=== PATIENT | female | born 1970 | race African-American/Black ===

== ENCOUNTER 2019-06-26 10:37 | Emergency (ER) | payer OTHER ==
[~2019-06-26] VITALS: Ht 170.2 cm; Wt 98.4 kg
[~2019-06-26 10:37] MED LIST: BACTRIM DS TAB1 EACH PO; BENADRYL25 MG PO; CALAN; CARVEDILOL12.5 MG PO; COLACE100 MG PO; ERYTHROMYCIN E3.5 G3 OPHTHALMIC; FARXIGA5 MG; GLUCOPHAGE500 MG; IBUPROFEN 800800 MG PO; JANUVIA100 MG PO; LIPITOR10 MG PO; LISINOPRIL20 MG PO; MEDROLDOSEPACK PO; NOHOMEMEDICATIONS; NORCO 5-325 TA1 EACH PO; OMEGA-31000 M1; PEPCID20 MG PO; PHENTERMINE H37.5 MG; PHENTERMINE HCL15 MG; ROBAXIN 750 MG750 M1 PO; TAMIFLU45 MG PO; TOPAMAX50 MG; TUSSIONEX PENN473 ML PO; ULTRAM 50MG TAB50 MG PO; VENTOLIN HFA 1818 GM INH; ZPAK PO
[2019-06-26] MEDS ORDERED: PHENTERMINE H37.5 MG PO (11:04)
[2019-06-26 11:59] LABS: ABSOLUTE NEUTROPHILS 5.5 thou/uL (1.4-8.2); EOSINOPHILS 1.5 % (0.0-3.0); HEMATOCRIT 38.4 % (37.0-47.0); HEMOGLOBIN 12.3 gm/dL (12.0-15.0); LYMPHOCYTES 24.4 % (24.0-44.0); MCH 27.4 pg (26.0-34.0); MCHC 32.1 g/dL (28.0-37.0); MCV 85.3 fL (80.0-100.0); MONOCYTES 10.6 % (1.0-8.0); PLATELET COUNT 244 thou/uL (150-400); POLYS 62.5 % (36.0-66.0); RBC 4.51 mil/uL (4.20-5.00); RDW 15.7 % (10.5-14.5); WBC 8.8 thou/uL (4.0-11.0)
[2019-06-26 12:05] LABS: ANION GAP 8 mmol/L (7-16); BUN 10 mg/dL (7-18); CALCIUM 9.5 mg/dL (8.5-10.1); CHLORIDE 101 mmol/L (98-107); CO2 27 mmol/L (21-32); CREATININE 0.9 mg/dL (0.6-1.0); GLUCOSE 100 mg/dL (74-106); POTASSIUM 3.9 mmol/L (3.5-5.1); SODIUM 136 mmol/L (136-145)
[2019-06-26 12:16] LABS: ALBUMIN 3.5 g/dL (3.4-5.0); SGOT 17 U/L (15-37); SGPT 18 U/L (30-65); TOTAL BILIRUBIN 0.4 mg/dL (<0.1-1.0); TOTAL PROTEIN 8.6 g/dL (6.4-8.2); TROPONIN-I <0.06 ng/mL (<0.06)
[2019-06-26] MEDS ORDERED: MOBIC15 MG PO (13:26)
[2019-06-26] MEDS ORDERED: MEDROLDOSEPACK PO (13:26)
[2019-06-26 14:02] VITALS: BP 161/98
--- NOTE | 2019-06-26 17:20 | EKG ---
[facility] [place] [address] ELECTROCARDIOGRAM REPORT Name: OMARI BECERRA [facility]US[facility] [id number] Admission: 06/26/19 Attend Phys: Discharge: 06/26/19 Date of : 68 Report #: [id number] THIS REPORT FOR: //name// [facility] ED Test Date: 2019-06-26 Test Time: 10:51:05 Pat Name: OMARI BECERRA Department: Room: Gender: F [employer]: REAL : 1970 Requested By: Antonia Gómez Order Number: [id number] MD: Miah Su Measurements Intervals [place] Rate: 83 P: 16 MI: 123 QRS: -33 QRSD: 107 T: -30 QT: 372 QTc: 437 Interpretive Statements Sinus rhythm Left ventricular hypertrophy Anterior Q waves, possibly due to LVH Abnormal T, consider ischemia, inferior leads Baseline wander in lead(s) II,III,aVF Compared to ECG 07/01/2015 10:19:43 No significant change was found Electronically Signed On 06-26-2019 17:20:19 BILINGUAL RESEARCH INTERVIEWER by Miah Su [email or web address] <ELECTRONICALLY SIGNED> By: Miah Su MD, [facility] 06/26/19 1720 1051 1051 Miah Su MD, [facility] /EPI
== END 2019-06-26 14:02 | disposition home or self-care (01) ==
LOC: ER 10:37
PROVIDERS: Physician Assistant
DX: R07.89 Other chest pain (principal); R05 Cough; I10 Essential (primary) hypertension; Z90.89 Acquired absence of other organs; Z90.49 Acquired absence of other specified parts of digestive tract; Z88.8 Allergy status to other drugs, medicaments and biological substances

== ENCOUNTER 2019-07-05 16:01 | Emergency (ER) | payer OTHER ==
[~2019-07-05] VITALS: Ht 170.2 cm; Wt 99.8 kg
[~2019-07-05 16:01] MED LIST changes: +MOBIC15 MG PO; +PHENTERMINE H37.5 MG PO
[2019-07-05 16:02] VITALS: BP 170/106
[2019-07-05] MEDS ORDERED: NEOMYC-POLYM-DEX5 ML OPHTHALMIC (16:10)
== END 2019-07-05 16:40 | disposition home or self-care (01) ==
LOC: ER 16:01
DX: H10.9 Unspecified conjunctivitis (principal); I10 Essential (primary) hypertension; Z90.49 Acquired absence of other specified parts of digestive tract; Z88.1 Allergy status to other antibiotic agents; Z88.8 Allergy status to other drugs, medicaments and biological substances

== ENCOUNTER 2021-07-31 09:22 | Emergency (ER) | payer OTHER ==
[~2021-07-31] VITALS: Ht 170.2 cm; Wt 112.0 kg
[~2021-07-31 09:22] MED LIST changes: +NEOMYC-POLYM-DEX5 ML OPHTHALMIC
[2021-07-31] MEDS ORDERED: OMEGA-3 ACID ETH1 GM PO (09:35)
[2021-07-31] MEDS ORDERED: CEPHALEXIN500 MG PO (10:20)
[2021-07-31] MEDS ORDERED: PREDNISONE 20 M20 MG PO (10:20)
[2021-07-31] MEDS ORDERED: NORCO5 PO (10:38)
[2021-07-31 10:43] VITALS: BP 175/120
== END 2021-07-31 10:41 | disposition home or self-care (01) ==
LOC: ER 09:22
DX: S70.322A Blister (nonthermal), left thigh, initial encounter (principal); R21 Rash and other nonspecific skin eruption; L25.9 Unspecified contact dermatitis, unspecified cause; I10 Essential (primary) hypertension; Z90.89 Acquired absence of other organs; Z90.49 Acquired absence of other specified parts of digestive tract; Z79.899 Other long term (current) drug therapy; Z88.8 Allergy status to other drugs, medicaments and biological substances; X58.XXXA Exposure to other specified factors, initial encounter; Y93.89 Activity, other specified; Y92.89 Other specified places as the place of occurrence of the external cause; Y99.8 Other external cause status

== ENCOUNTER 2021-08-24 17:58 | Emergency (ER) | payer OTHER ==
[~2021-08-24] VITALS: Ht 170.2 cm; Wt 111.1 kg
[~2021-08-24 17:58] MED LIST changes: +CEPHALEXIN500 MG PO; +NORCO5 PO; +OMEGA-3 ACID ETH1 GM PO; +PREDNISONE 20 M20 MG PO
[2021-08-24 18:00] VITALS: BP 103/63
[2021-08-24] MEDS ORDERED: CEPHALEXIN500 MG PO (19:36)
[2021-08-24] MEDS ORDERED: TRIAMCINOLONE A80 GM TOP (19:53)
[2021-08-24] MEDS ORDERED: MEDROLDOSEPACK PO (19:58)
== END 2021-08-24 21:20 | disposition home or self-care (01) ==
LOC: ER 17:58
DX: L03.113 Cellulitis of right upper limb (principal); L30.9 Dermatitis, unspecified; I10 Essential (primary) hypertension; M79.601 Pain in right arm; Z90.89 Acquired absence of other organs; Z90.49 Acquired absence of other specified parts of digestive tract; Z79.899 Other long term (current) drug therapy; Z88.8 Allergy status to other drugs, medicaments and biological substances